=== PATIENT | male | born 1945 | race Caucasian/White ===

== ENCOUNTER 2017-02-22 21:23 | Emergency (ER) | payer OTHER ==
[~2017-02-22] VITALS: Ht 157.4 cm; Wt 108.9 kg
[2017-02-22] MEDS ORDERED: TYLENOL325 M1 PO (21:46)
[2017-02-22] MEDS ORDERED: ALBUTEROL INHALER (21:46)
[2017-02-22] MEDS ORDERED: ALFUZOSIN HCL E10 MG PO (21:47)
[2017-02-22] MEDS ORDERED: ELIQUIS5 M1 PO (21:48)
[2017-02-22] MEDS ORDERED: AMLODIPINE BESY1 TAB PO (21:48)
[2017-02-22] MEDS ORDERED: ARTIFICIAL SALIVA (21:49)
[2017-02-22] MEDS ORDERED: VITAMIN C60 MG PO (21:49)
[2017-02-22] MEDS ORDERED: LIPITOR20 MG PO (21:50)
[2017-02-22] MEDS ORDERED: PULMICORT0.5 MG/2 M INH (22:19)
[2017-02-22] MEDS ORDERED: BUPROPION ER100 MG PO (22:20)
[2017-02-22] MEDS ORDERED: REFRESH OPTIVE1 EACH OP (22:22)
[2017-02-22] MEDS ORDERED: CETIRIZINE HYDR10 M1 PO (22:23)
[2017-02-22] MEDS ORDERED: B-121000 MCG PO (22:23)
[2017-02-22] MEDS ORDERED: ARICEPT10 M1 PO (22:24)
[2017-02-22] MEDS ORDERED: DOCUSATE SODIU100 M2 PO (22:24)
[2017-02-22] MEDS ORDERED: GABAPENTIN400 MG PO (22:25)
[2017-02-22] MEDS ORDERED: FLUTICASON0.05 MG/AC NAS (22:25)
[2017-02-22] MEDS ORDERED: HYDR25T PO (22:26)
[2017-02-22] MEDS ORDERED: HYDRALAZINE HYD50 MG PO (22:26)
[2017-02-22] MEDS ORDERED: ACIDOPHILUS PO (22:26)
[2017-02-22] MEDS ORDERED: PREVACID15 M1 PO (22:27)
[2017-02-22] MEDS ORDERED: COZAAR100 MG PO (22:27)
[2017-02-22] MEDS ORDERED: MONTELUKAST SOD10 MG PO (22:27)
[2017-02-22] MEDS ORDERED: CHEWABLE VITE1 CTB PO (22:28)
[2017-02-22] MEDS ORDERED: OXYBUTYNIN5 MG PO (22:28)
[2017-02-22] MEDS ORDERED: K-TAB20 MEQ PO (22:28)
[2017-02-22] MEDS ORDERED: CIALIS5 MG PO (22:29)
[2017-02-22] MEDS ORDERED: ULTRAM50 MG PO (22:29)
[2017-02-22] MEDS ORDERED: RANITIDINE HCL150 M1 PO (22:29)
[2017-02-22] MEDS ORDERED: TRAZODONE50 MG PO (22:30)
[2017-02-22] MEDS ORDERED: ASPIRIN325 M2 PO (22:30)
== END 2017-02-22 22:03 | disposition home or self-care (01) ==
LOC: ED 21:23
DX: S61.211A Laceration without foreign body of left index finger without damage to nail, initial encounter (principal); Z98.890 Other specified postprocedural states; Z79.82 Long term (current) use of aspirin; Z79.899 Other long term (current) drug therapy; Z88.8 Allergy status to other drugs, medicaments and biological substances; W22.8XXA Striking against or struck by other objects, initial encounter; Y93.89 Activity, other specified; Y92.009 Unspecified place in unspecified non-institutional (private) residence as the place of occurrence of the external cause; Y99.9 Unspecified external cause status

== ENCOUNTER → 2017-03-03 | Outpatient (CLI) | payer OTHER ==
[~2017-03-03] MED LIST: ACIDOPHILUS PO; ALBUTEROL INHALER; ALFUZOSIN HCL E10 MG PO; AMLODIPINE BESY1 TAB PO; ARICEPT10 M1 PO; ARTIFICIAL SALIVA; ASPIRIN325 M2 PO; B-121000 MCG PO; BUPROPION ER100 MG PO; CETIRIZINE HYDR10 M1 PO; CHEWABLE VITE1 CTB PO; CIALIS5 MG PO; COZAAR100 MG PO; DOCUSATE SODIU100 M2 PO; ELIQUIS5 M1 PO; FLUTICASON0.05 MG/AC NAS; GABAPENTIN400 MG PO; HYDR25T PO; HYDRALAZINE HYD50 MG PO; K-TAB20 MEQ PO; LIPITOR20 MG PO; MONTELUKAST SOD10 MG PO; OXYBUTYNIN5 MG PO; PREVACID15 M1 PO; PULMICORT0.5 MG/2 M INH; RANITIDINE HCL150 M1 PO; REFRESH OPTIVE1 EACH OP; TRAZODONE50 MG PO; TYLENOL325 M1 PO; ULTRAM50 MG PO; VITAMIN C60 MG PO
[2017-03-03 12:24] LABS: BASO % 0.7 % (0.0-1.0); EOS # 0.1 10*3/uL (0.0-0.4); EOS % 1.8 % (1.0-4.0); HEMATOCRIT 39.3 % (42.0-52.0); HEMOGLOBIN 12.4 g/dl (14.0-18.0); LYMPH # 1.7 10*3/uL (1.3-4.4); LYMPH % 30.5 % (27.0-41.0); MEAN CELL VOLUME 89.1 fl (80.0-94.0); MEAN CORPUSCULAR HGB 28.1 pg (27.0-31.0); MEAN CORPUSCULAR HGB CONC 31.6 g/dl (33.0-37.0); MEAN PLATELET VOLUME 10.3 fl (9.6-12.3); MONO # 0.5 10*3/uL (0.1-1.0); MONO % 8.3 % (3.0-9.0); NEUT # 3.2 10*3/uL (2.3-7.9); NEUT % 58.5 % (47.0-73.0); PLATELET COUNT AUTOMATED 171 10*3/uL (130-400); RED BLOOD COUNT 4.41 10*6/uL (4.50-5.90); RED CELL DISTRI WIDTH 13.7 % (0-14.5); WHITE BLOOD COUNT 5.5 10*3/uL (4.8-10.8)
[2017-03-03 13:00] LABS: PROTHROMBIN TIME 10.7 SECONDS (9.0-12.4)
[2017-03-03 13:06] LABS: HEMOGLOBIN A1c 5.8 % (4.8-5.6)
== END | disposition home or self-care (01) ==
LOC: LAB 11:48
DX: Z01.818 Encounter for other preprocedural examination (principal)

== ENCOUNTER → 2017-03-03 | Outpatient (CLI) | payer OTHER ==
[2017-03-03 12:59] LABS: ALBUMIN 3.8 gm/dl (3.1-4.5); ALKALINE PHOSPHATASE 120 U/L (45-117); BILIRUBIN, DIRECT 0.2 mg/dL (0.0-0.2); BILIRUBIN, TOTAL 0.5 mg/dl (0.2-1.0); BUN 13 mg/dl (7-24); CARBON DIOXIDE 30 mmol/L (21-32); CHLORIDE 107 mmol/L (98-107); CHOLESTEROL 112 mg/dL (<200); EST GLOM FILT AFRICAN AMERICAN > 60 ml/min; GLUCOSE 105 mg/dL (65-99); HDL CHOLESTEROL 52 mg/dl (40-60); LDL CHOLESTEROL 42 mg/dL (9-159); POTASSIUM 3.2 mmol/L (3.5-5.1); SGOT/AST 14 IU/L (3-35); SGPT/ALT 23 U/L (12-78); SODIUM 143 mmol/L (136-145); TOTAL PROTEIN 7.5 gm/dL (6.4-8.2); TRIGLYCERIDES 91 mg/dl (<150); VLDL CHOLESTEROL 18 mg/dL (6-40)
== END | disposition home or self-care (01) ==
LOC: LAB 11:54
DX: I10 Essential (primary) hypertension (principal); E78.5 Hyperlipidemia, unspecified; Z79.899 Other long term (current) drug therapy

== ENCOUNTER → 2019-06-04 | Outpatient (CLI) | payer OTHER | END | disposition home or self-care (01) | LOC: CT 15:00 | DX: M20.41 Other hammer toe(s) (acquired), right foot (principal) ==

== ENCOUNTER 2019-08-28 13:00 | Emergency (ER) | payer OTHER ==
[~2019-08-28] VITALS: Ht 167.6 cm; Wt 117.9 kg
[2019-08-28 14:14] LABS: BASO # 0.1 10*3/uL (0.0-0.1); BASO % 0.8 % (0.0-1.0); EOS # 0.2 10*3/uL (0.0-0.4); EOS % 3.1 % (1.0-4.0); HEMATOCRIT 41.9 % (42.0-52.0); HEMOGLOBIN 13.4 g/dl (14.0-18.0); LYMPH # 1.8 10*3/uL (1.3-4.4); LYMPH % 28.6 % (27.0-41.0); MEAN CELL VOLUME 94.2 fl (80.0-94.0); MEAN CORPUSCULAR HGB 30.1 pg (27.0-31.0); MEAN PLATELET VOLUME 10.3 fl (9.6-12.3); MONO # 0.5 10*3/uL (0.1-1.0); MONO % 8.5 % (3.0-9.0); NEUT # 3.6 10*3/uL (2.3-7.9); NEUT % 58.7 % (47.0-73.0); PLATELET COUNT AUTOMATED 156 10*3/uL (130-400); RED BLOOD COUNT 4.45 10*6/uL (4.50-5.90); RED CELL DISTRI WIDTH 13.2 % (0-14.5); WHITE BLOOD COUNT 6.1 10*3/uL (4.8-10.8)
[2019-08-28 14:25] LABS: ACT PARTIAL THROMBO TIME 29.7 SECONDS (20.0-32.1)
[2019-08-28 14:29] LABS: ALBUMIN 3.4 gm/dl (3.1-4.5); ALKALINE PHOSPHATASE 90 U/L (45-117); BUN 17 mg/dl (7-24); CHLORIDE 103 mmol/L (98-107); CREATININE 1.29 mg/dL (0.70-1.30); POTASSIUM 3.6 mmol/L (3.5-5.1); SGOT/AST 14 IU/L (3-35); SGPT/ALT 29 U/L (12-78); SODIUM 140 mmol/L (136-145); TOTAL PROTEIN 6.9 gm/dL (6.4-8.2)
== END 2019-08-28 15:39 | disposition home or self-care (01) ==
LOC: ED 13:00
PROVIDERS: Emergency Medicine
DX: S92.342A Displaced fracture of fourth metatarsal bone, left foot, initial encounter for closed fracture (principal); S92.352A Displaced fracture of fifth metatarsal bone, left foot, initial encounter for closed fracture; S79.911A Unspecified injury of right hip, initial encounter; Z88.8 Allergy status to other drugs, medicaments and biological substances; Z79.899 Other long term (current) drug therapy; Z79.82 Long term (current) use of aspirin; Z96.651 Presence of right artificial knee joint; Z96.652 Presence of left artificial knee joint; Z96.641 Presence of right artificial hip joint; X50.1XXA Overexertion from prolonged static or awkward postures, initial encounter; Y93.89 Activity, other specified; Y92.091 Bathroom in other non-institutional residence as the place of occurrence of the external cause; Y99.8 Other external cause status

== ENCOUNTER → 2023-02-13 | Outpatient (CLI) | payer OTHER | END | disposition home or self-care (01) | LOC: RAD 11:12 | PROVIDERS: ATTEND Orthopaedic Surgery | DX: M25.531 Pain in right wrist (principal) ==

== ENCOUNTER → 2023-04-26 | Outpatient (CLI) | payer OTHER | END | disposition home or self-care (01) | LOC: ORTHO 08:22 | PROVIDERS: ATTEND Orthopaedic Surgery | DX: M19.011 Primary osteoarthritis, right shoulder (principal) ==

== ENCOUNTER → 2023-06-14 | Outpatient (CLI) | payer OTHER | END | disposition home or self-care (01) | LOC: RAD 15:27 | PROVIDERS: ATTEND Nurse Practitioner Acute Care | DX: S82.001A Unspecified fracture of right patella, initial encounter for closed fracture (principal); M79.89 Other specified soft tissue disorders; X58.XXXA Exposure to other specified factors, initial encounter; Y93.89 Activity, other specified; Y92.89 Other specified places as the place of occurrence of the external cause; Y99.8 Other external cause status ==

== ENCOUNTER → 2025-02-10 | Outpatient (CLI) | payer OTHER ==
[2025-02-10 13:31] LABS: BASO % 0.4 % (0.0-1.0); EOS % 0.5 % (1.0-4.0); HEMATOCRIT 37.8 % (42.0-52.0); MEAN CORPUSCULAR HGB 29.9 pg (27.0-31.0); MEAN CORPUSCULAR HGB CONC 31.5 g/dl (33.0-37.0); MEAN PLATELET VOLUME 9.6 fl (9.6-12.3); MONO # 0.7 10*3/uL (0.1-1.0); MONO % 7.7 % (3.0-9.0); NEUT # 4.7 10*3/uL (2.3-7.9); NEUT % 56.1 % (47.0-73.0); PLATELET COUNT AUTOMATED 248 10*3/uL (130-400); RED BLOOD COUNT 3.98 10*6/uL (4.50-5.90); RED CELL DISTRI WIDTH 14.6 % (0-14.5); WHITE BLOOD COUNT 8.4 10*3/uL (4.8-10.8)
[2025-02-10 13:34] LABS: BILIRUBIN Negative (Negative); BLOOD Negative (Negative); CLARITY Clear (Clear); COLOR Yellow (Yellow); GLUCOSE Negative (Negative); KETONE Negative (Negative); LEUKO ESTERASE Negative (Negative); NITRITE Negative (Negative); SPECIFIC GRAVITY 1.015 (1.001-1.030)
[2025-02-10 13:47] LABS: EPITHELIAL CELLS 0-2; WBC 0-2 wbc/hpf (0-5)
[2025-02-10 14:03] LABS: POTASSIUM 4.1 mmol/L (3.4-5.1)
[2025-02-10 14:09] LABS: VITAMIN D, 25-HYDROXY 62.7 ng/mL (30-100)
== END | disposition home or self-care (01) ==
LOC: LAB 13:11
PROVIDERS: ATTEND Internal Medicine Nephrology
DX: N25.81 Secondary hyperparathyroidism of renal origin (principal); N18.30 Chronic kidney disease, stage 3 unspecified; D63.1 Anemia in chronic kidney disease